=== PATIENT | male | born 1975 | race Caucasian/White ===

== ENCOUNTER 2017-02-19 15:52 | Emergency (ER) | payer SELFPAY ==
--- NOTE | 2017-02-19 18:15 | DIAGNOSTIC IMAGING REPORT ---
PROCEDURE: US ABDOMEN ULTRASOUND-LIMITED INDICATION: RUQ PAIN TECHNIQUE: Ledesma scale and color Doppler sonographic images of the abdomen were obtained. COMPARISON: None. FINDINGS: Gallbladder is normal. No evidence of gallstones. Common duct is normal (4 mm). Portions of the liver are seen, there is fatty infiltration with fat sparing in the posterior left lobe. Portions of the aorta and right kidney are seen, and are normal. Inferior vena cava is patent. Pancreas is partially obscured by bowel gas. IMPRESSION: 1. Increased echogenicity liver compatible fatty infiltration. 2. Normal gallbladder. 3. Otherwise negative ultrasound of the right upper quadrant.
--- NOTE | 2017-02-19 18:33 | ED NURSING NOTES ---
Clinical Report - Nurses Formerly [facility] [address] [place] [address] 02/19/2017 15:54 Patient: WINIFRED BONE TRIAGE Triage time 16:07. Acuity: LEVEL 3. Chief Complaint: ABDOMINAL PAIN and DIARRHEA. Alert. --16:18 Amelia Waldrop R.N. 16:07 02/19/17. BP: 160/94. HR: 85. RR: 20. O2 saturation: 98%. Temp: 98.1 F. Pain level now 03/16. --16:18 Amelia Waldrop R.N. Weight: 122.4 kg stated. Height/Length: 72 inches Per Patient. BMI: 36.6. --16:21 Amelia Waldrop R.N. Medications Levothyroxine Sodium Oral (Tablet 150 mcg). --16:12 Amelia Waldrop R.N. Escitalopram Oxalate Oral (Tablet 20 mg). --16:12 Amelia Waldrop R.N. Allergies No Known Drug Allergy. --16:11 Amelia Waldrop R.N. History Arrived by private vehicle. Historian: patient. Accompanied by family. No primary care physician. ( RUQ abd pain, constant for about 2 weeks. Always has diarrhea. Nothing noted to increase or decrease the pain.). PAST MEDICAL HX: Immunizations: status is unknown. SURGERY HX: Appendectomy. ( cleft palette, pylonidal cyst). SOCIAL HX: Former smoker. Alcohol use. No drug use. No recent travel. No infectious disease exposure. No known contact with a sick individual. SELF HARM ASSESSMENT: A self harm assessment was performed. The patient answered "no" to the question "Have you recently felt down, depressed, or hopeless?" and "Do you have thoughts of harming or killing yourself?". FALL RISK ASSESSMENT: Fall risk assessment completed. No fall risk identified. NUTRITIONAL RISK ASSESSMENT: The nutritional risk assessment revealed no deficiencies. FUNCTIONAL ASSESSMENT: Functional assessment: no impairments noted. LEARNING NEEDS ASSESSMENT: The learning needs assessment revealed no barriers. SKIN INTEGRITY ASSESSMENT: Skin integrity risk assessment completed. No skin integrity risk identified. --16:18 Amelia Waldrop R.N. PROBLEMS: Anxiety Reaction. Hypothyroidism. --16:14 Amelia Waldrop R.N. Interventions ID band on patient. To treatment room. --16:18 Amelia Waldrop R.N. PHYSICAL ASSESSMENT Ambulatory to room. HEENT: Mucous membranes are pink. GI / : The patient has diarrhea (normal daily). Abdomen soft. Abdominal tenderness. Bowel sounds within normal limits. Stool color normal. SKIN: Skin is warm and dry. --16:21 Amelia Waldrop R.N. NURSING PROGRESS NOTES Monitoring of patient in place. Patient gowned. Head of bed elevated. Two patient identifiers checked. Call light placed in reach. Side rails up x 1. Bed placed in lowest position. Brakes of bed on. Patient ready for evaluation- chart flagged. ED physician notified. --16:22 Amelia Waldrop R.N. 16:38 02/19/2017 Site #1 started via IV in the left hand with an 20g angiocath, with aseptic technique and good blood return; one attempt. Blood drawn: rainbow set. Labeled in the presence of the patient and sent to the lab. Saline lock flushed with 5 mL saline. --16:38 Amelia Waldrop R.N. 18:47 02/19/2017 IV Saline Lock Drip IV Discontinued: STOPPED upon discharge. --19:12 Amelia Waldrop R.N. DISPOSITION / DISCHARGE 18:55 02/19/2017 Site #1 removed upon discharge. Catheter intact. Pressure dressing applied. --19:05 Amelia Waldrop R.N. 1845. No learning barriers present. Discharge instructions provided and reviewed with the patient. Reviewed medication(s) dosing and course information. Prescription(s) given to the patient. Medication(s) for home use given to the patient per protocol. Patient verbalized understanding. Written instructions provided in Canadian. The patient was discharged home and accompanied by spouse. He left the Emergency Department ambulatory and via private vehicle. Spouse driving. FALL RISK ASSESSMENT: Fall risk assessment completed. No fall risk identified. --19:10 Amelia Waldrop R.N. 18:40 02/19/17. BP: 134/85. HR: 79. RR: 18. O2 saturation: 96%. Temp: 98.2 F. Pain level now 04/16. --19:10 Amelia Waldrop R.N. Departure time: 1899. --19:10 Amelia Waldrop R.N. Locked/Released at 02/19/2017 19:15 by Amelia Waldrop R.N.
--- NOTE | 2017-02-19 18:33 | ED ORDER SUMMARY ---
..... Patient: WINIFRED BONE OrderSheet [facility] VisitID: [id number] [place] [address] 41y, M Registration Date/Time: 02/19/2017 ORDER SHEET Weight: 122.4 kg (stated) Allergies: No Known Drug Allergy GENERAL ORDERS: CBC w Diff Urgent (16:38 02/19/2017 LAbe R.N. per protocol) (16:38 LAbe R.N.) CMP Urgent (16:38 02/19/2017 LAbe R.N. per protocol) (16:38 LAbe R.N.) UA-Culture if indicated Urgent (16:38 02/19/2017 LAbe R.N. per protocol) (16:38 LAbe R.N.) Amylase Urgent (16:38 02/19/2017 LAbe R.N. per protocol) (16:38 LAbe R.N.) Lipase Urgent (16:38 02/19/2017 LAbe R.N. per protocol) (16:38 LAbe R.N.) US Abdomen Limited (Yes) (GB) Urgent (17:36 02/19/2017 Shannan Mcgee) (Ack 17:37 Salome) (17:48 LAbe R.N.) MEDICATION ORDERS: IV FLUIDS: IV Saline Lock (16:38 02/19/2017 LAbe R.N. per protocol) (Ack 16:38 LAbe R.N.) ORDER SHEET NOTES: [Electronically signed by Augie Bone Dr. (18:52 02/19/2017)] [Electronically signed by Amelia Waldrop R.N. (19:15 02/19/2017)] [Electronically locked/signed by Amelia Waldrop R.N. (19:15 02/19/2017)]
--- NOTE | 2017-02-19 18:33 | ED CLINICAL REPORT ---
Clinical Report - Physicians/Mid Levels [facility] [address] [place] [address] 02/19/2017 15:54 Patient: WINIFRED LAWRENCE Time Seen: 16:13; initial patient contact. HISTORY OF PRESENT ILLNESS Chief Complaint: ABDOMINAL PAIN. It is described as "pain" and sharp. No radiation. It is described as located in the right upper quadrant. At its maximum, severity described as moderate. When seen in the E.D., severity described as moderate. Modifying factors. Not worsened by anything. Not relieved by anything. This started several weeks ago and is still present. No nausea, loss of appetite, vomiting or diarrhea. Similar symptoms previously: None. Recent medical care: Not recently seen/assessed. REVIEW OF SYSTEMS No constipation or difficulty with urination. All systems otherwise negative, except as recorded above. PAST HISTORY Anxiety Reaction. Hypothyroidism. SOCIAL HISTORY Former smoker. Occasional alcohol use. No drug use. ADDITIONAL NOTES The nursing notes have been reviewed. PHYSICAL EXAM Vital Signs: 02/19/2017 16:07 BP: 160/94. HR: 85. RR: 20. O2 saturation: 98%. Temp: 98.1 F. Have been reviewed. Hypertensive. Heart rate normal. Respiratory rate normal. Temperature normal. Oxygen saturation normal. Appearance: Alert. Oriented X3. No acute distress. (On his phone texting). ENT: Pharynx normal. CVS: Normal heart rate and rhythm. Heart sounds normal. Respiratory: No respiratory distress. Breath sounds normal. Abdomen: Soft. Moderate tenderness in the right upper quadrant with guarding present. No rebound tenderness or Ortega's sign present. Bowel sounds normal. No organomegaly. No mass. Back: Normal inspection. No CVA tenderness. Skin: Skin warm and dry. Normal skin color. Neuro: Oriented X 3. LABS, X-RAYS, AND EKG Abdominal Sonogram: (1. Increased echogenicity liver compatible fatty infiltration. 2. Normal gallbladder.). Study included the gallbladder. Prior studies were not available for comparison. The study was interpreted by the radiologist and discussed with the radiologist. Laboratory Tests: UA-Culture if indicated: (MAGGIE: 02/19/2017 16:30) ( [facility] 02/19/2017 17:18) Final results Test Result Flag Units (Reference) URINE COLOR YELLOW URINE APPEARANCE CLEAR URINE GLUCOSE NEGATIVE (NEGATIVE) URINE BILIRUBIN NEGATIVE (NEGATIVE) URINE KETONE NEGATIVE (NEGATIVE) URINE SPECIFIC GRAVITY 1.020 (1.010-1.030) URINE PH 6.0 (5.0-8.0) URINE PROTEIN NEGATIVE (NEGATIVE) URINE UROBILINOGEN 0.2 EU/dL (0.2-1.0) URINE NITRITE NEGATIVE (NEGATIVE) URINE BLOOD NEGATIVE (NEGATIVE) URINE LEUK ESTERASE NEGATIVE (NEGATIVE) URINE RBC NONE SEEN rbc/hpf (0-1) URINE WBC 0-1 wbc/hpf (0-1) URINE EPITHELIAL CELLS 0-1 EPI/hpf (0-5) URINE BACTERIA NONE SEEN (NONE SEEN) URINE COMMENT CULT NOT INDICATED URINE CULTURES ARE SET-UP BASED ON THE FOLLOWING CRITERIA:POSITIVE NITRITEPOSITIVE LEUKOCYTE ESTERASEGREATER THAN 10 WHITE BLOOD CELLSMODERATE (2+) OR GREATER BACTERIA CBC w Diff: (MAGGIE: 02/19/2017 16:30) ( [facility] 02/19/2017 16:50) Final results Test Result Flag Units (Reference) WHITE BLOOD COUNT 6.6 K/uL (4.5-11.5) RED BLOOD COUNT 4.75 M/uL (4.50-5.90) HEMOGLOBIN 14.5 gm/dL (13.5-17.5) HEMATOCRIT 42.7 % (41.0-53.0) MEAN CELL VOLUME 90 fL (80-100) MEAN CORPUSCULAR HGB 31 pg (26-34) MEAN CORPUSCULAR HGB CONC 34 g/dL (31-37) RED CELL DISTRIBUTION WIDTH 12.7 % (11.6-14.8) PLATELET COUNT 246 K/uL (150-400) NEUTROPHIL % 56.3 % (50-75) LYMPH % 33.6 % (25-40) MONO % 7.9 % (3-14) EOSINOPHIL % 1.9 % (0-4) BASOPHIL % 0.3 % (0-2) CMP: (MAGGIE: 02/19/2017 16:30) ( [facility] 02/19/2017 17:08) Final results Test Result Flag Units (Reference) GLUCOSE 131 H mg/dL (70-110) BUN 16 mg/dL (7-18) CREATININE 1.0 mg/dL (0.6-1.3) Estimated GFR >60 mL/min Estimated GFR- >60 mL/min Note: Persistent reduction over 3 months in eGFR<60 mL/min/1.73 m2 defines CKD. Patients with eGFR values>=60 mL/min/1.73 m2 may also have CKD if evidence ofpersistent proteinuria. Additional information may be foundat www.kidney.org. SODIUM 138 mmol/L (136-145) POTASSIUM 3.6 mmol/L (3.5-5.1) CHLORIDE 102 mmol/L (98-107) CARBON DIOXIDE 26 mmol/L (21-32) CALCIUM 8.3 L mg/dL (8.5-10.1) TOTAL PROTEIN 7.5 g/dL (6.4-8.2) ALBUMIN 3.6 g/dL (3.3-5.0) BILIRUBIN, TOTAL 0.2 mg/dL (0.0-1.0) ALKALINE PHOSPHATASE 88 U/L (46-116) AST (SGOT) 23 U/L (15-37) ALT (SGPT) 52 U/L (12-78) LIPASE 199 U/L (73-393) AMYLASE 33 U/L (25-115) . PROGRESS AND PROCEDURES Disposition: Discharged home in good and improved condition. Condition: good. CLINICAL IMPRESSION Chronic right upper quadrant abdominal pain of unknown cause. INSTRUCTIONS Your Current Medications: CONTINUE TAKING THE FOLLOWING MEDICATIONS: Escitalopram Oxalate Oral : Tablet 20 mg. Levothyroxine Sodium Oral : Tablet 150 mcg. Prescription Medications: Hydrocodone/APAP 5mg / 325mg: take 1 orally every 6 hours as needed for pain. Dispense fifteen (15). No refill. BuSpar 7.5 mg: take 1 tablet every 12 hours. Dispense thirty (30). No refills. Substitution is permissible. Lidoderm patch 5% Apply 1 patch for 12 hours to affected area Disp # 30 No refills. Follow-up: Screening today revealed the patient's blood pressure to be in the hypertensive range. The patient should follow up with a primary care provider for blood pressure management. Follow-up with: [facility], Family [facility], , [address] [place] [address], [id number], [place] [address] Follow up in about four days. Call for an appointment. (Electronically signed by Augie Lawrence Dr. 02/19/2017 18:52)
--- NOTE | 2017-02-19 18:33 | ED ORDER SUMMARY ---
..... Patient: WINIFRED BONE OrderSheet [facility] VisitID: [id number] [place] [address] 41y, M Registration Date/Time: 02/19/2017 ORDER SHEET Weight: 122.4 kg (stated) Allergies: No Known Drug Allergy GENERAL ORDERS: CBC w Diff Urgent (16:38 02/19/2017 LAbe R.N. per protocol) (16:38 LAbe R.N.) CMP Urgent (16:38 02/19/2017 LAbe R.N. per protocol) (16:38 LAbe R.N.) UA-Culture if indicated Urgent (16:38 02/19/2017 LAbe R.N. per protocol) (16:38 LAbe R.N.) Amylase Urgent (16:38 02/19/2017 LAbe R.N. per protocol) (16:38 LAbe R.N.) Lipase Urgent (16:38 02/19/2017 LAbe R.N. per protocol) (16:38 LAbe R.N.) US Abdomen Limited (Yes) (GB) Urgent (17:36 02/19/2017 Shannan Mcgee) (Ack 17:37 Salome) (17:48 LAbe R.N.) MEDICATION ORDERS: IV FLUIDS: IV Saline Lock (16:38 02/19/2017 LAbe R.N. per protocol) (Ack 16:38 LAbe R.N.) ORDER SHEET NOTES: [Electronically signed by Augie Bone Dr. (18:52 02/19/2017)] [Electronically signed by Amelia Waldrop R.N. (19:15 02/19/2017)] [Electronically locked/signed by Amelia Waldrop R.N. (19:15 02/19/2017)]
--- NOTE | 2017-02-19 19:15 | ED MED RECONCILIATION SUMMARY ---
Patient: WINIFRED LAWRECNE Medication Reconciliation Report VisitID: [id number] [place] [address] 41y, M Registration Date/Time: 02/19/2017 Weight: 122.4 kg Height/Length: 72 in. BMI: 36.6 ALLERGIES: No Known Drug Allergy The patient's Home Medications are listed below: CONTINUE TAKING THE FOLLOWING MEDICATIONS: Escitalopram Oxalate Oral (20 mg) Levothyroxine Sodium Oral (150 mcg) The source(s) of the original Home Medication information: Not obtained. The following Medications were given to the patient in the Emergency Department: None. The following Medications were prescribed to the patient: Hydrocodone/APAP 5mg / 325mg: take 1 orally every 6 hours as needed for pain. Dispense fifteen (15). No refill. -- Augie Lawrence Dr. Lidoderm patch 5%Apply 1 patch for 12 hours to affected areaDisp # 30No refills. -- Augie Lawrence Dr. BuSpar 7.5 mg: take 1 tablet every 12 hours. Dispense thirty (30). No refills. Substitution is permissible. -- Augie Lawrence Dr.
--- NOTE | 2017-02-19 19:15 | ED MAR SUMMARY ---
..... Medication Administration Record [facility] [address] [place] [address] Patient: WINIFRED BONE Visit ID: [id number] 41y, M Weight: 122.4 kg Height/Length: 72 in BMI: 36.6 ALLERGIES: No Known Drug Allergy
--- NOTE | 2017-02-19 19:15 | ED DISCHARGE INSTRUCTIONS ---
Patient: WINIFRED LAWRENCE General Instructions [facility] VisitID: [id number] [place] [address] 41y, M Registration Date/Time: 02/19/2017 Chronic right upper quadrant abdominal pain of unknown cause. INSTRUCTIONS Your Current Medications: CONTINUE TAKING THE FOLLOWING MEDICATIONS: Escitalopram Oxalate Oral : Tablet 20 mg. Levothyroxine Sodium Oral : Tablet 150 mcg. Prescription Medications: Hydrocodone/APAP 5mg / 325mg: take 1 orally every 6 hours as needed for pain. Dispense fifteen (15). No refill. BuSpar 7.5 mg: take 1 tablet every 12 hours. Dispense thirty (30). No refills. Substitution is permissible. Lidoderm patch 5% Apply 1 patch for 12 hours to affected area Disp # 30 No refills. Follow-up: Screening today revealed the patient's blood pressure to be in the hypertensive range. The patient should follow up with a primary care provider for blood pressure management. Follow-up with: [facility], , [address] [place] [address], [address] [address] Follow up in about four days. Call for an appointment. ADDITIONAL INFORMATION Abdominal Pain,Uncertain Cause [Male] Based on your visit today, the exact cause of your abdominalpain is not clear. Your exam and tests do not indicate a dangerous cause at this time. However, the signs of a serious problem may take more time to appear. Although your evaluation was reassuring today, sometimes early in the course of many conditions, exam and lab tests can appear normal. Therefore, it is important for you to watch for any new symptoms or worsening of your condition. Causes It may not be obvious what caused your symptoms. Pay attention to things that do seem to make your symptoms worse or better and discuss this with your doctor when you follow up. Diagnosis The evaluation of abdominal pain in the emergency department may onlyrequire an exam by the doctor or it may include blood, urine or imaging studies, depending on many factors. Sometimes exams and tests can identify a cause but in many cases, a clear cause is not found. Further testing at follow up visits may help to suggest a clear diagnosis. Home Care Rest as much as possible until your next exam. Try to avoid any medications (unless otherwise directed by your doctor), foods, activities, or other factors that you may have contributed to your symptoms. Try to eat foods that you know that you have tolerated well in the past. Certain diets may be recommended for some conditions that cause abdominal pain. However, since the cause of your symptoms may not be clear, discuss your diet more with your primary care provider or specialist for further recommendations. Eating several small meals per day as opposed to 2 or 3 larger meals may help. Monitor closely for anything that may make your symptoms worse or better. Pay close attention to symptoms below that may indicate worsening of your condition. Follow Up and Precautions See your doctoras instructed or sooneror if your symptoms are not improving.In some cases, you may need more testing. When to Seek Medical Attention Contact your doctor or see medical attention ifany of the following occur: Pain is becoming worse You are unable to take your medications due to excessive vomiting Swelling of the abdomen Fever of 100.4F (38C) or higher, or as directed by your health care provider Blood in vomit or bowel movements (dark red or black color) Jaundice (yellow color of eyes and skin) New onset of weakness, dizziness or fainting New onset of chest, arm, back, neck or jaw pain Hydrocodone Bitartrate, Acetaminophen Oral tablet What is this medicine? ACETAMINOPHEN; HYDROCODONE (a set a ARNAUD maximus fen; brenton droe KOE done) is a pain reliever. It is used to treat mild to moderate pain. How should I use this medicine? Take this medicine by mouth. Swallow it with a full glass of water. Follow the directions on the prescription label. If the medicine upsets your stomach, take the medicine with food or milk. Do not take more than you are told to take. Talk to your scalloper regarding the use of this medicine in children. This medicine is not approved for use in children. What side effects may I notice from receiving this medicine? Side effects that you should report to your doctor or health rn transitional care as soon as possible: allergic reactions like skin rash, itching or hives, swelling of the face, lips, or tongue breathing problems confusion feeling faint or lightheaded, falls stomach pain yellowing of the eyes or skin Side effects that usually do not require medical attention (report to your doctor or health rn transitional care if they continue or are bothersome): nausea, vomiting stomach upset What may interact with this medicine? alcohol antihistamines isoniazid medicines for depression, anxiety, or psychotic disturbances medicines for sleep muscle relaxants naltrexone narcotic medicines (opiates) for pain phenobarbital ritonavir tramadol What if I miss a dose? If you miss a dose, take it as soon as you can. If it is almost time for your next dose, take only that dose. Do not take double or extra doses. Where should I keep my medicine? Keep out of the reach of children. This medicine can be abused. Keep your medicine in a safe place to protect it from theft. Do not share this medicine with anyone. Selling or giving away this medicine is dangerous and against the law. Store at room temperature between 15 and 30 degrees C (59 and 86 degrees F). Protect from light. Keep container tightly closed. Throw away any unused medicine after the expiration date. Discard unused medicine and used packaging carefully. Pets and children can be harmed if they find used or lost packages. What should I tell my health care provider before I take this medicine? They need to know if you have any of these conditions: brain tumor Crohn's disease, inflammatory bowel disease, or ulcerative colitis drink more than 3 alcohol-containing drinks per day drug abuse or addiction head injury heart or circulation problems kidney disease or problems going to the bathroom liver disease lung disease, asthma, or breathing problems an unusual or allergic reaction to acetaminophen, hydrocodone, other opioid analgesics, other medicines, foods, dyes, or preservatives or trying to get breast-feeding What should I watch for while using this medicine? Tell your doctor or health rn transitional care if your pain does not go away, if it gets worse, or if you have new or a different type of pain. You may develop tolerance to the medicine. Tolerance means that you will need a higher dose of the medicine for pain relief. Tolerance is normal and is expected if you take the medicine for a long time. Do not suddenly stop taking your medicine because you may develop a severe reaction. Your body becomes used to the medicine. This does NOT mean you are addicted. Addiction is a behavior related to getting and using a drug for a non-medical reason. If you have pain, you have a medical reason to take pain medicine. Your doctor will tell you how much medicine to take. If your doctor wants you to stop the medicine, the dose will be slowly lowered over time to avoid any side effects. You may get drowsy or dizzy when you first start taking the medicine or change doses. Do not drive, use machinery, or do anything that may be dangerous until you know how the medicine affects you. Stand or sit up slowly. There are different types of narcotic medicines (opiates) for pain. If you take more than one type at the same time, you may have more side effects. Give your health care provider a list of all medicines you use. Your doctor will tell you how much medicine to take. Do not take more medicine than directed. Call emergency for help if you have problems breathing. The medicine will cause constipation. Try to have a bowel movement at least every 2 to 3 days. If you do not have a bowel movement for 3 days, call your doctor or health rn transitional care. Too much acetaminophen can be very dangerous. Do not take Tylenol (acetaminophen) or medicines that contain acetaminophen with this medicine. Many non-prescription medicines contain acetaminophen. Always read the labels carefully. You have been given the following additional information: Abdominal Pain, Unknown Cause, (Male) Hydrocodone Bitartrate, Acetaminophen Oral tablet (Electronically signed by Augie Lawrence Dr. 02/19/2017 18:52)
--- NOTE | 2017-02-19 19:15 | ED MAR SUMMARY ---
..... Medication Administration Record Located Within [facility] [address] [place] [address] Patient: WINIFRED BONE Visit ID: [id number] 41y, M Weight: 122.4 kg Height/Length: 72 in BMI: 36.6 ALLERGIES: No Known Drug Allergy
--- NOTE | 2017-02-19 19:15 | ED MED RECONCILIATION SUMMARY ---
Patient: WINIFRED LAWRENCE Medication Reconciliation Report [facility] VisitID: [id number] [place] [address] 41y, M Registration Date/Time: 02/19/2017 Weight: 122.4 kg Height/Length: 72 in. BMI: 36.6 ALLERGIES: No Known Drug Allergy The patient's Home Medications are listed below: CONTINUE TAKING THE FOLLOWING MEDICATIONS: Escitalopram Oxalate Oral (20 mg) Levothyroxine Sodium Oral (150 mcg) The source(s) of the original Home Medication information: Not obtained. The following Medications were given to the patient in the Emergency Department: None. The following Medications were prescribed to the patient: Hydrocodone/APAP 5mg / 325mg: take 1 orally every 6 hours as needed for pain. Dispense fifteen (15). No refill. -- Augie Lawrence Dr. Lidoderm patch 5%Apply 1 patch for 12 hours to affected areaDisp # 30No refills. -- Augie Lawrence Dr. BuSpar 7.5 mg: take 1 tablet every 12 hours. Dispense thirty (30). No refills. Substitution is permissible. -- Augie Lawrence Dr.
--- NOTE | 2017-02-19 19:15 | ED DISCHARGE INSTRUCTIONS ---
Patient: WINIFRED LAWRENCE General Instructions [facility] VisitID: [id number] [place] [address] 41y, M Registration Date/Time: 02/19/2017 Chronic right upper quadrant abdominal pain of unknown cause. INSTRUCTIONS Your Current Medications: CONTINUE TAKING THE FOLLOWING MEDICATIONS: Escitalopram Oxalate Oral : Tablet 20 mg. Levothyroxine Sodium Oral : Tablet 150 mcg. Prescription Medications: Hydrocodone/APAP 5mg / 325mg: take 1 orally every 6 hours as needed for pain. Dispense fifteen (15). No refill. BuSpar 7.5 mg: take 1 tablet every 12 hours. Dispense thirty (30). No refills. Substitution is permissible. Lidoderm patch 5% Apply 1 patch for 12 hours to affected area Disp # 30 No refills. Follow-up: Screening today revealed the patient's blood pressure to be in the hypertensive range. The patient should follow up with a primary care provider for blood pressure management. Follow-up with: [facility], [facility], , [address] [place] [address], [id number] [id number] Follow up in about four days. Call for an appointment. ADDITIONAL INFORMATION Abdominal Pain,Uncertain Cause [Male] Based on your visit today, the exact cause of your abdominalpain is not clear. Your exam and tests do not indicate a dangerous cause at this time. However, the signs of a serious problem may take more time to appear. Although your evaluation was reassuring today, sometimes early in the course of many conditions, exam and lab tests can appear normal. Therefore, it is important for you to watch for any new symptoms or worsening of your condition. Causes It may not be obvious what caused your symptoms. Pay attention to things that do seem to make your symptoms worse or better and discuss this with your doctor when you follow up. Diagnosis The evaluation of abdominal pain in the emergency department may onlyrequire an exam by the doctor or it may include blood, urine or imaging studies, depending on many factors. Sometimes exams and tests can identify a cause but in many cases, a clear cause is not found. Further testing at follow up visits may help to suggest a clear diagnosis. Home Care Rest as much as possible until your next exam. Try to avoid any medications (unless otherwise directed by your doctor), foods, activities, or other factors that you may have contributed to your symptoms. Try to eat foods that you know that you have tolerated well in the past. Certain diets may be recommended for some conditions that cause abdominal pain. However, since the cause of your symptoms may not be clear, discuss your diet more with your primary care provider or specialist for further recommendations. Eating several small meals per day as opposed to 2 or 3 larger meals may help. Monitor closely for anything that may make your symptoms worse or better. Pay close attention to symptoms below that may indicate worsening of your condition. Follow Up and Precautions See your doctoras instructed or sooneror if your symptoms are not improving.In some cases, you may need more testing. When to Seek Medical Attention Contact your doctor or see medical attention ifany of the following occur: Pain is becoming worse You are unable to take your medications due to excessive vomiting Swelling of the abdomen Fever of 100.4F (38C) or higher, or as directed by your health care provider Blood in vomit or bowel movements (dark red or black color) Jaundice (yellow color of eyes and skin) New onset of weakness, dizziness or fainting New onset of chest, arm, back, neck or jaw pain Hydrocodone Bitartrate, Acetaminophen Oral tablet What is this medicine? ACETAMINOPHEN; HYDROCODONE (a set a ARNAUD maximus fen; brenton droe KOE done) is a pain reliever. It is used to treat mild to moderate pain. How should I use this medicine? Take this medicine by mouth. Swallow it with a full glass of water. Follow the directions on the prescription label. If the medicine upsets your stomach, take the medicine with food or milk. Do not take more than you are told to take. Talk to your bracer regarding the use of this medicine in children. This medicine is not approved for use in children. What side effects may I notice from receiving this medicine? Side effects that you should report to your doctor or health home care manager as soon as possible: allergic reactions like skin rash, itching or hives, swelling of the face, lips, or tongue breathing problems confusion feeling faint or lightheaded, falls stomach pain yellowing of the eyes or skin Side effects that usually do not require medical attention (report to your doctor or health home care manager if they continue or are bothersome): nausea, vomiting stomach upset What may interact with this medicine? alcohol antihistamines isoniazid medicines for depression, anxiety, or psychotic disturbances medicines for sleep muscle relaxants naltrexone narcotic medicines (opiates) for pain phenobarbital ritonavir tramadol What if I miss a dose? If you miss a dose, take it as soon as you can. If it is almost time for your next dose, take only that dose. Do not take double or extra doses. Where should I keep my medicine? Keep out of the reach of children. This medicine can be abused. Keep your medicine in a safe place to protect it from theft. Do not share this medicine with anyone. Selling or giving away this medicine is dangerous and against the law. Store at room temperature between 15 and 30 degrees C (59 and 86 degrees F). Protect from light. Keep container tightly closed. Throw away any unused medicine after the expiration date. Discard unused medicine and used packaging carefully. Pets and children can be harmed if they find used or lost packages. What should I tell my health care provider before I take this medicine? They need to know if you have any of these conditions: brain tumor Crohn's disease, inflammatory bowel disease, or ulcerative colitis drink more than 3 alcohol-containing drinks per day drug abuse or addiction head injury heart or circulation problems kidney disease or problems going to the bathroom liver disease lung disease, asthma, or breathing problems an unusual or allergic reaction to acetaminophen, hydrocodone, other opioid analgesics, other medicines, foods, dyes, or preservatives or trying to get breast-feeding What should I watch for while using this medicine? Tell your doctor or health home care manager if your pain does not go away, if it gets worse, or if you have new or a different type of pain. You may develop tolerance to the medicine. Tolerance means that you will need a higher dose of the medicine for pain relief. Tolerance is normal and is expected if you take the medicine for a long time. Do not suddenly stop taking your medicine because you may develop a severe reaction. Your body becomes used to the medicine. This does NOT mean you are addicted. Addiction is a behavior related to getting and using a drug for a non-medical reason. If you have pain, you have a medical reason to take pain medicine. Your doctor will tell you how much medicine to take. If your doctor wants you to stop the medicine, the dose will be slowly lowered over time to avoid any side effects. You may get drowsy or dizzy when you first start taking the medicine or change doses. Do not drive, use machinery, or do anything that may be dangerous until you know how the medicine affects you. Stand or sit up slowly. There are different types of narcotic medicines (opiates) for pain. If you take more than one type at the same time, you may have more side effects. Give your health care provider a list of all medicines you use. Your doctor will tell you how much medicine to take. Do not take more medicine than directed. Call emergency for help if you have problems breathing. The medicine will cause constipation. Try to have a bowel movement at least every 2 to 3 days. If you do not have a bowel movement for 3 days, call your doctor or health home care manager. Too much acetaminophen can be very dangerous. Do not take Tylenol (acetaminophen) or medicines that contain acetaminophen with this medicine. Many non-prescription medicines contain acetaminophen. Always read the labels carefully. You have been given the following additional information: Abdominal Pain, Unknown Cause, (Male) Hydrocodone Bitartrate, Acetaminophen Oral tablet (Electronically signed by Augie Lawrence Dr. 02/19/2017 18:52)
== END 2017-02-19 18:59 | disposition home or self-care (01) ==
LOC: ED SRH 15:52
DX: R10.11 Right upper quadrant pain (principal); G89.29 Other chronic pain; E03.9 Hypothyroidism, unspecified; Z87.891 Personal history of nicotine dependence
CPT/HCPCS: 90004; 90100; 92235; 92530; 95059

== ENCOUNTER 2017-02-25 10:54 | Emergency (ER) | payer OTHER ==
--- NOTE | 2017-02-25 14:35 | ED ORDER SUMMARY ---
..... Patient: WINIFRED BONE OrderSheet [facility] VisitID: [id number] [place] [address] 41y, M Registration Date/Time: 02/25/2017 ORDER SHEET Weight: 132.9 kg (stated) Allergies: No Known Drug Allergy GENERAL ORDERS: CBC w Diff Urgent (11:36 02/25/2017 Indra HADLEY) (Ack 11:39 LNations ER Tech1) CMP Urgent (11:36 02/25/2017 Indra HADLEY) (Ack 11:39 LNations ER Tech1) Amylase Urgent (11:02/25/2017 Indra HADLEY) (Ack 11:39 LNations ER Tech1) Lipase Urgent (11:02/25/2017 Indra HADLEY) (Ack 11:39 LNations ER Tech1) PT with INR Urgent (11:02/25/2017 Indra HADLEY) (Ack 11:40 LNations ER Tech1) PTT Urgent (11:02/25/2017 Indra HADLEY) (Ack 11:40 LNations ER Tech1) NPO (11:36 02/25/2017 Indra HADLEY) (Ack 11:39 LNations ER Tech1) UA-Culture if indicated Urgent (12:10 02/25/2017 Indra HADLEY) (Ack 12:12 LNations ER Tech1) MEDICATION ORDERS: IV FLUIDS: IV NS : initial bolus 1000 mL (1000 mL/hr), then 200 mL/hr for 4h (NOW); Urgent (11:36 02/25/2017 Indra HADLEY) (12:07 Krzysztof R.N.) ORDER SHEET NOTES: [Electronically signed by Sheriff Rajinder Vieira (14:58 02/25/2017)] [Electronically signed by Eugenio Combs MD (21:48 02/26/2017)] [Electronically locked/signed by Sheriff Rajinder Vieira (14:58 02/25/2017)]
--- NOTE | 2017-02-25 14:35 | ED CLINICAL REPORT ---
Clinical Report - Physicians/Mid Levels [facility] [address] [place] [address] 02/25/2017 10:54 Patient: WINIFRED BONE Time Seen: 11:14. Arrived- By private vehicle. Historian- patient. HISTORY OF PRESENT ILLNESS Chief Complaint: ABDOMINAL PAIN. This started about 3 weeks ago and is still present. It was gradual in onset and has been constant. It is described as "pain" and burning and it is described as located in the right upper quadrant and in the upper abdomen. At its maximum, severity described as 8 / 10. When seen in the E.D., severity described as 8 / 10. Modifying factors- (worsened yesterday by drinking milk). No nausea, loss of appetite, vomiting or diarrhea. Recent medical care: The patient was seen recently at another facility in a clinic. Seen for similar symptoms. ( the patient was seen for similar symptoms at the clinic. They did lab work. They called him and instructed him to come to the emergency room because of elevated pancreatic enzymes.). REVIEW OF SYSTEMS No chills, fever, calf pain, chest pain or cough. No difficulty breathing, pedal edema, palpitations, black stools or bloody stools. No constipation, diarrhea or urinary problems. He has experienced night sweats. (chronically). All systems otherwise negative, except as recorded above. PAST HISTORY Problems: Abdominal Pain. Anxiety Reaction. Hypothyroidism. Additional Surgeries: Appendectomy. Medications: Escitalopram Oxalate Oral (Tablet 20 mg). Levothyroxine Sodium Oral (Tablet 150 mcg). Allergies: No Known Drug Allergy. SOCIAL HISTORY Smoker- current status unknown (chews tobacco). Alcohol use. (binges with beer. He drank a 6 pack last night. However, he doesn't drink most days). ADDITIONAL NOTES The nursing notes have been reviewed. PHYSICAL EXAM Vital Signs: 02/25/2017 11:05 BP: 139/92. HR: 88. RR: 18. O2 saturation: 99%. Temp: 98.1 F. Pain level now: 8/10. Have been reviewed. Appearance: Alert. Eyes: Pupils equal, round and reactive to light. ENT: Pharynx normal. Neck: Normal inspection. Neck supple. CVS: Normal heart rate and rhythm. Heart sounds normal. Respiratory: No respiratory distress. Breath sounds normal. Abdomen: Soft and nontender. Bowel sounds normal. No organomegaly. No mass. Obese. Back: Normal inspection. No CVA tenderness. Skin: Skin warm and dry. Normal skin color. Normal skin turgor. Extremities: Extremities exhibit normal ROM. No calf tenderness. No lower extremity edema. Neuro: No motor deficit. No sensory deficit. LABS, X-RAYS, AND EKG Laboratory Tests: CBC w Diff: (MAGGIE: 02/25/2017 12:00) ( MsgRcvd 02/25/2017 12:19) Final results Test Result Flag Units (Reference) WHITE BLOOD COUNT 5.2 K/uL (4.5-11.5) RED BLOOD COUNT 4.78 M/uL (4.50-5.90) HEMOGLOBIN 14.6 gm/dL (13.5-17.5) HEMATOCRIT 42.9 % (41.0-53.0) MEAN CELL VOLUME 90 fL (80-100) MEAN CORPUSCULAR HGB 31 pg (26-34) MEAN CORPUSCULAR HGB CONC 34 g/dL (31-37) RED CELL DISTRIBUTION WIDTH 12.5 % (11.6-14.8) PLATELET COUNT 209 K/uL (150-400) NEUTROPHIL % 51.0 % (50-75) LYMPH % 38.9 % (25-40) MONO % 8.0 % (3-14) EOSINOPHIL % 1.6 % (0-4) BASOPHIL % 0.5 % (0-2) PT with INR: (MAGGIE: 02/25/2017 12:00) ( MsgRcvd 02/25/2017 12:19) Final results Test Result Flag Units (Reference) INR 0.9 (0.8-1.2) Low Intensity Therapy: INR 1.5-2.0 PT range 18.5-23.1Mod.Intensity Therapy: INR 2.0-3.0 PT range 23.1-31.5High Intensity Therapy: INR 2.5-3.5 PT range 27.4-35.5High Intensity Therapy 2: INR 3.0-4.0 PT range 31.5-39.3 APTT 25 SECONDS (24-34) CMP: (MAGGIE: 02/25/2017 12:00) ( MsgRcvd 02/25/2017 12:24) Final results Test Result Flag Units (Reference) GLUCOSE 94 mg/dL (70-110) BUN 17 mg/dL (7-18) CREATININE 0.9 mg/dL (0.6-1.3) Estimated GFR >60 mL/min Estimated GFR- >60 mL/min Note: Persistent reduction over 3 months in eGFR<60 mL/min/1.73 m2 defines CKD. Patients with eGFR values>=60 mL/min/1.73 m2 may also have CKD if evidence ofpersistent proteinuria. Additional information may be foundat www.kidney.org. SODIUM 137 mmol/L (136-145) POTASSIUM 4.3 mmol/L (3.5-5.1) CHLORIDE 102 mmol/L (98-107) CARBON DIOXIDE 25 mmol/L (21-32) CALCIUM 8.3 L mg/dL (8.5-10.1) TOTAL PROTEIN 7.4 g/dL (6.4-8.2) ALBUMIN 3.6 g/dL (3.3-5.0) BILIRUBIN, TOTAL 0.2 mg/dL (0.0-1.0) ALKALINE PHOSPHATASE 84 U/L (46-116) AST (SGOT) 32 U/L (15-37) ALT (SGPT) 76 U/L (12-78) LIPASE 173 U/L (73-393) AMYLASE 32 U/L (25-115) . PROGRESS AND PROCEDURES Course of Care: Patient is stable. Patient/family counseled. Old medical records reviewed. Disposition: Discharged. Condition: stable. CLINICAL IMPRESSION Abdominal pain of unknown cause. Abnormal tests: (pancreatic enzymes resolved). INSTRUCTIONS Drink plenty of fluids. No alcohol. (Attend the appointment for your endoscopy as scheduled. Follow up with your primary care provider after that study as discussed.). Warnings: Further evaluation is necessary. GENERAL WARNINGS: Return or contact your physician immediately if your condition worsens or changes unexpectedly, if not improving as expected, or if other problems arise. Your Current Medications: CONTINUE TAKING THE FOLLOWING MEDICATIONS: Escitalopram Oxalate Oral : Tablet 20 mg. Levothyroxine Sodium Oral : Tablet 150 mcg. Understanding of the discharge instructions verbalized by patient. Follow-up with: [facility] Sanchez, [facility], , [address], [id number], , [facility] [address] Follow up in ten days. Call for an appointment. (Electronically signed by Eugenio Combs MD 02/26/2017 21:48)
--- NOTE | 2017-02-25 14:35 | ED NURSING NOTES ---
Clinical Report - Nurses [facility] [address] [place] [address] 02/25/2017 10:54 [id number] TRI[facility] Triage time 11:07. Chief Complaint: (Abnormal lab results. Sent by PCP for follow up.). --11:10 Sheriff Vieira R.N. 11:05 02/25/17. BP: 139/92. HR: 88. RR: 18. O2 saturation: 99%. Temp: 98.1 F. Pain level now: 04/16. --11:10 Sheriff Vieira R.N. Weight: 132.9 kg stated. Height/Length: 71 inches Per Patient. BMI: 40.9. --11:06 Sheriff Vieira R.N. Medications Escitalopram Oxalate Oral (Tablet 20 mg). Levothyroxine Sodium Oral (Tablet 150 mcg). --11:08 Sheriff Vieira R.N. Allergies No Known Drug Allergy. --11:08 Sheriff Vieira R.N. History Arrived by private vehicle. Historian: patient. Unaccompanied. Onset. (2 hours ago). SURGERY HX: Appendectomy. SOCIAL HX: Never smoker. Alcohol use; consumes beer occasionally. No drug use. FALL RISK ASSESSMENT: Fall risk assessment completed. No fall risk identified. NUTRITIONAL RISK ASSESSMENT: The nutritional risk assessment revealed no deficiencies. FUNCTIONAL ASSESSMENT: Functional assessment: no impairments noted. LEARNING NEEDS ASSESSMENT: The learning needs assessment revealed no barriers. SKIN INTEGRITY ASSESSMENT: Skin integrity risk assessment completed. No skin integrity risk identified. --11:10 Sheriff Vieira R.N. PROBLEMS: Abdominal Pain. Anxiety Reaction. Hypothyroidism. --11:08 Sheriff Vieira R.N. PHYSICAL ASSESSMENT Ambulatory to room. GENERAL / NEURO / PSYCH: Alert. Oriented X 4. Appears in no acute distress. HEENT: Pupils equal, round and reactive to light. No facial asymmetry noted. RESPIRATORY: Respirations not labored. CVS: Capillary refill less than 2 seconds. GI / : Abdomen soft. SKIN: Skin intact. Skin is warm and dry. Normal skin turgor. --11:10 Sheriff Viiera R.N. NURSING PROGRESS NOTES Two patient identifiers checked. Call light placed in reach. Side rails up x 2. Bed placed in lowest position. Brakes of bed on. --11:10 Sheriff Vieira R.N. 12:01 02/25/2017 Site #1 started via IV in the right wrist with an 22g angiocath, with aseptic technique and good blood return; one attempt. Blood drawn: rainbow set. Labeled in the presence of the patient and sent to the lab. Saline lock flushed with 10 mL saline. --12:06 Sheriff Vieira R.N. 12:07 02/25/2017 Started bag #1 1000 mL IV Fluids IV NS (Saline); at 1000 mL/hr over 1 hour(s) via site #1 via IV pump. Allergies verified and confirmed 5 rights. IV patency established. IV site checked: no pain, redness, or swelling. IV flushed thoroughly pre- and post-medication administration. --12:07 Sheriff Vieira R.N. 14:11 02/25/2017 Started IV Fluids IV NS (Saline); at 200 mL/hr over 5 hour(s) via site #1 via IV pump. Allergies verified and confirmed 5 rights. IV patency established. IV site checked: no pain, redness, or swelling. IV flushed thoroughly pre- and post-medication administration. --14:11 Sheriff Vieira R.N. DISPOSITION / DISCHARGE Condition at departure: stable. No learning barriers present. Discharge instructions provided and reviewed with the patient. Reviewed medication(s) side effects, precautions, dosing and course information. Prescription(s) given to the parent. Patient verbalized understanding. Written instructions provided in Mongolian. The patient was discharged by the physician. He was discharged home and unaccompanied at time of discharge. He left the Emergency Department ambulatory and via private vehicle. Patient driving. --14:58 Sheriff Vieira R.N. Locked/Released at 02/25/2017 14:58 by Sheriff Vieira R.N.
--- NOTE | 2017-02-25 14:35 | ED ORDER SUMMARY ---
..... Patient: WINIFRED BONE OrderSheet [facility] VisitID: [id number] [place] [address] 41y, M Registration Date/Time: 02/25/2017 ORDER SHEET Weight: 132.9 kg (stated) Allergies: No Known Drug Allergy GENERAL ORDERS: CBC w Diff Urgent (11:36 02/25/2017 Indra HADLEY) (Ack 11:39 LNations ER Tech1) CMP Urgent (11:36 02/25/2017 Indra HADLEY) (Ack 11:39 LNations ER Tech1) Amylase Urgent (11:02/25/2017 Indra HADLEY) (Ack 11:39 LNations ER Tech1) Lipase Urgent (11:02/25/2017 Indra HADLEY) (Ack 11:39 LNations ER Tech1) PT with INR Urgent (11:02/25/2017 Indra HADLEY) (Ack 11:40 LNations ER Tech1) PTT Urgent (11:02/25/2017 Indra HADLEY) (Ack 11:40 LNations ER Tech1) NPO (11:36 02/25/2017 Indra HADLEY) (Ack 11:39 LNations ER Tech1) UA-Culture if indicated Urgent (12:10 02/25/2017 Indra HADLEY) (Ack 12:12 LNations ER Tech1) MEDICATION ORDERS: IV FLUIDS: IV NS : initial bolus 1000 mL (1000 mL/hr), then 200 mL/hr for 4h (NOW); Urgent (11:36 02/25/2017 Indra HADLEY) (12:07 Krzysztof R.N.) ORDER SHEET NOTES: [Electronically signed by Sheriff Rajinder Vieira (14:58 02/25/2017)] [Electronically signed by Eugenio Combs MD (21:48 02/26/2017)] [Electronically locked/signed by Sheriff Rajinder Vieira (14:58 02/25/2017)]
--- NOTE | 2017-02-25 14:35 | ED NURSING NOTES ---
Clinical Report - Nurses [facility] [address] [place] [address] 02/25/2017 10:54 [id number] Triage time 11:07. Chief Complaint: (Abnormal lab results. Sent by PCP for follow up.). --11:10 Sheriff Vieira R.N. 11:05 02/25/17. BP: 139/92. HR: 88. RR: 18. O2 saturation: 99%. Temp: 98.1 F. Pain level now: 04/16. --11:10 Sheriff Vieira R.N. Weight: 132.9 kg stated. Height/Length: 71 inches Per Patient. BMI: 40.9. --11:06 Sheriff Vieira R.N. Medications Escitalopram Oxalate Oral (Tablet 20 mg). Levothyroxine Sodium Oral (Tablet 150 mcg). --11:08 Sheriff Vieira R.N. Allergies No Known Drug Allergy. --11:08 Sheriff Vieira R.N. History Arrived by private vehicle. Historian: patient. Unaccompanied. Onset. (2 hours ago). SURGERY HX: Appendectomy. SOCIAL HX: Never smoker. Alcohol use; consumes beer occasionally. No drug use. FALL RISK ASSESSMENT: Fall risk assessment completed. No fall risk identified. NUTRITIONAL RISK ASSESSMENT: The nutritional risk assessment revealed no deficiencies. FUNCTIONAL ASSESSMENT: Functional assessment: no impairments noted. LEARNING NEEDS ASSESSMENT: The learning needs assessment revealed no barriers. SKIN INTEGRITY ASSESSMENT: Skin integrity risk assessment completed. No skin integrity risk identified. --11:10 Sheriff Vieira R.N. PROBLEMS: Abdominal Pain. Anxiety Reaction. Hypothyroidism. --11:08 Sheriff Vieira R.N. PHYSICAL ASSESSMENT Ambulatory to room. GENERAL / NEURO / PSYCH: Alert. Oriented X 4. Appears in no acute distress. HEENT: Pupils equal, round and reactive to light. No facial asymmetry noted. RESPIRATORY: Respirations not labored. CVS: Capillary refill less than 2 seconds. GI / : Abdomen soft. SKIN: Skin intact. Skin is warm and dry. Normal skin turgor. --11:10 Sheriff Vieira R.N. NURSING PROGRESS NOTES Two patient identifiers checked. Call light placed in reach. Side rails up x 2. Bed placed in lowest position. Brakes of bed on. --11:10 Sheriff Vieira R.N. 12:01 02/25/2017 Site #1 started via IV in the right wrist with an 22g angiocath, with aseptic technique and good blood return; one attempt. Blood drawn: rainbow set. Labeled in the presence of the patient and sent to the lab. Saline lock flushed with 10 mL saline. --12:06 Sheriff Vieira R.N. 12:07 02/25/2017 Started bag #1 1000 mL IV Fluids IV NS (Saline); at 1000 mL/hr over 1 hour(s) via site #1 via IV pump. Allergies verified and confirmed 5 rights. IV patency established. IV site checked: no pain, redness, or swelling. IV flushed thoroughly pre- and post-medication administration. --12:07 Sheriff Vieira R.N. 14:11 02/25/2017 Started IV Fluids IV NS (Saline); at 200 mL/hr over 5 hour(s) via site #1 via IV pump. Allergies verified and confirmed 5 rights. IV patency established. IV site checked: no pain, redness, or swelling. IV flushed thoroughly pre- and post-medication administration. --14:11 Sheriff Vieira R.N. DISPOSITION / DISCHARGE Condition at departure: stable. No learning barriers present. Discharge instructions provided and reviewed with the patient. Reviewed medication(s) side effects, precautions, dosing and course information. Prescription(s) given to the parent. Patient verbalized understanding. Written instructions provided in Chinese. The patient was discharged by the physician. He was discharged home and unaccompanied at time of discharge. He left the Emergency Department ambulatory and via private vehicle. Patient driving. --14:58 Sheriff Vieira R.N. Locked/Released at 02/25/2017 14:58 by Sheriff Vieira R.N.
--- NOTE | 2017-02-25 14:35 | ED CLINICAL REPORT ---
Clinical Report - Physicians/Mid Levels Formerly [facility] [address] [place] [address] 02/25/2017 10:54 Patient: WINIFRED BONE Time Seen: 11:14. Arrived- By private vehicle. Historian- patient. HISTORY OF PRESENT ILLNESS Chief Complaint: ABDOMINAL PAIN. This started about 3 weeks ago and is still present. It was gradual in onset and has been constant. It is described as "pain" and burning and it is described as located in the right upper quadrant and in the upper abdomen. At its maximum, severity described as 8 / 10. When seen in the E.D., severity described as 8 / 10. Modifying factors- (worsened yesterday by drinking milk). No nausea, loss of appetite, vomiting or diarrhea. Recent medical care: The patient was seen recently at another facility in a clinic. Seen for similar symptoms. ( the patient was seen for similar symptoms at the clinic. They did lab work. They called him and instructed him to come to the emergency room because of elevated pancreatic enzymes.). REVIEW OF SYSTEMS No chills, fever, calf pain, chest pain or cough. No difficulty breathing, pedal edema, palpitations, black stools or bloody stools. No constipation, diarrhea or urinary problems. He has experienced night sweats. (chronically). All systems otherwise negative, except as recorded above. PAST HISTORY Problems: Abdominal Pain. Anxiety Reaction. Hypothyroidism. Additional Surgeries: Appendectomy. Medications: Escitalopram Oxalate Oral (Tablet 20 mg). Levothyroxine Sodium Oral (Tablet 150 mcg). Allergies: No Known Drug Allergy. SOCIAL HISTORY Smoker- current status unknown (chews tobacco). Alcohol use. (binges with beer. He drank a 6 pack last night. However, he doesn't drink most days). ADDITIONAL NOTES The nursing notes have been reviewed. PHYSICAL EXAM Vital Signs: 02/25/2017 11:05 BP: 139/92. HR: 88. RR: 18. O2 saturation: 99%. Temp: 98.1 F. Pain level now: 8/10. Have been reviewed. Appearance: Alert. Eyes: Pupils equal, round and reactive to light. ENT: Pharynx normal. Neck: Normal inspection. Neck supple. CVS: Normal heart rate and rhythm. Heart sounds normal. Respiratory: No respiratory distress. Breath sounds normal. Abdomen: Soft and nontender. Bowel sounds normal. No organomegaly. No mass. Obese. Back: Normal inspection. No CVA tenderness. Skin: Skin warm and dry. Normal skin color. Normal skin turgor. Extremities: Extremities exhibit normal ROM. No calf tenderness. No lower extremity edema. Neuro: No motor deficit. No sensory deficit. LABS, X-RAYS, AND EKG Laboratory Tests: CBC w Diff: (MAGGIE: 02/25/2017 12:00) ( MsgRcvd 02/25/2017 12:19) Final results Test Result Flag Units (Reference) WHITE BLOOD COUNT 5.2 K/uL (4.5-11.5) RED BLOOD COUNT 4.78 M/uL (4.50-5.90) HEMOGLOBIN 14.6 gm/dL (13.5-17.5) HEMATOCRIT 42.9 % (41.0-53.0) MEAN CELL VOLUME 90 fL (80-100) MEAN CORPUSCULAR HGB 31 pg (26-34) MEAN CORPUSCULAR HGB CONC 34 g/dL (31-37) RED CELL DISTRIBUTION WIDTH 12.5 % (11.6-14.8) PLATELET COUNT 209 K/uL (150-400) NEUTROPHIL % 51.0 % (50-75) LYMPH % 38.9 % (25-40) MONO % 8.0 % (3-14) EOSINOPHIL % 1.6 % (0-4) BASOPHIL % 0.5 % (0-2) PT with INR: (MAGGIE: 02/25/2017 12:00) ( MsgRcvd 02/25/2017 12:19) Final results Test Result Flag Units (Reference) INR 0.9 (0.8-1.2) Low Intensity Therapy: INR 1.5-2.0 PT range 18.5-23.1Mod.Intensity Therapy: INR 2.0-3.0 PT range 23.1-31.5High Intensity Therapy: INR 2.5-3.5 PT range 27.4-35.5High Intensity Therapy 2: INR 3.0-4.0 PT range 31.5-39.3 APTT 25 SECONDS (24-34) CMP: (MAGGIE: 02/25/2017 12:00) ( MsgRcvd 02/25/2017 12:24) Final results Test Result Flag Units (Reference) GLUCOSE 94 mg/dL (70-110) BUN 17 mg/dL (7-18) CREATININE 0.9 mg/dL (0.6-1.3) Estimated GFR >60 mL/min Estimated GFR- >60 mL/min Note: Persistent reduction over 3 months in eGFR<60 mL/min/1.73 m2 defines CKD. Patients with eGFR values>=60 mL/min/1.73 m2 may also have CKD if evidence ofpersistent proteinuria. Additional information may be foundat www.kidney.org. SODIUM 137 mmol/L (136-145) POTASSIUM 4.3 mmol/L (3.5-5.1) CHLORIDE 102 mmol/L (98-107) CARBON DIOXIDE 25 mmol/L (21-32) CALCIUM 8.3 L mg/dL (8.5-10.1) TOTAL PROTEIN 7.4 g/dL (6.4-8.2) ALBUMIN 3.6 g/dL (3.3-5.0) BILIRUBIN, TOTAL 0.2 mg/dL (0.0-1.0) ALKALINE PHOSPHATASE 84 U/L (46-116) AST (SGOT) 32 U/L (15-37) ALT (SGPT) 76 U/L (12-78) LIPASE 173 U/L (73-393) AMYLASE 32 U/L (25-115) . PROGRESS AND PROCEDURES Course of Care: Patient is stable. Patient/family counseled. Old medical records reviewed. Disposition: Discharged. Condition: stable. CLINICAL IMPRESSION Abdominal pain of unknown cause. Abnormal tests: (pancreatic enzymes resolved). INSTRUCTIONS Drink plenty of fluids. No alcohol. (Attend the appointment for your endoscopy as scheduled. Follow up with your primary care provider after that study as discussed.). Warnings: Further evaluation is necessary. GENERAL WARNINGS: Return or contact your physician immediately if your condition worsens or changes unexpectedly, if not improving as expected, or if other problems arise. Your Current Medications: CONTINUE TAKING THE FOLLOWING MEDICATIONS: Escitalopram Oxalate Oral : Tablet 20 mg. Levothyroxine Sodium Oral : Tablet 150 mcg. Understanding of the discharge instructions verbalized by patient. Follow-up with: Kadie Sanchez, Family Practice, , [address], [address], , [facility] [id number] Follow up in ten days. Call for an appointment. (Electronically signed by Eugenio Combs MD 02/26/2017 21:48)
--- NOTE | 2017-02-26 21:48 | ED DISCHARGE INSTRUCTIONS ---
Patient: WINIFRED BONE General Instructions [facility] VisitID: [id number] [address] [place] [place] [id number] 41y, M Registration Date/Time: 02/25/2017 Abdominal pain of unknown cause. Abnormal tests: (pancreatic enzymes resolved). INSTRUCTIONS Drink plenty of fluids. No alcohol. (Attend the appointment for your endoscopy as scheduled. Follow up with your primary care provider after that study as discussed.). Warnings: Further evaluation is necessary. GENERAL WARNINGS: Return or contact your physician immediately if your condition worsens or changes unexpectedly, if not improving as expected, or if other problems arise. Your Current Medications: CONTINUE TAKING THE FOLLOWING MEDICATIONS: Escitalopram Oxalate Oral : Tablet 20 mg. Levothyroxine Sodium Oral : Tablet 150 mcg. Understanding of the discharge instructions verbalized by patient. Follow-up with: Kadie Sanchez, [facility], , [address], [address], , [place] [address] Follow up in ten days. Call for an appointment. ADDITIONAL INFORMATION Abdominal Pain,Uncertain Cause [Male] Based on your visit today, the exact cause of your abdominalpain is not clear. Your exam and tests do not indicate a dangerous cause at this time. However, the signs of a serious problem may take more time to appear. Although your evaluation was reassuring today, sometimes early in the course of many conditions, exam and lab tests can appear normal. Therefore, it is important for you to watch for any new symptoms or worsening of your condition. Causes It may not be obvious what caused your symptoms. Pay attention to things that do seem to make your symptoms worse or better and discuss this with your doctor when you follow up. Diagnosis The evaluation of abdominal pain in the emergency department may onlyrequire an exam by the doctor or it may include blood, urine or imaging studies, depending on many factors. Sometimes exams and tests can identify a cause but in many cases, a clear cause is not found. Further testing at follow up visits may help to suggest a clear diagnosis. Home Care Rest as much as possible until your next exam. Try to avoid any medications (unless otherwise directed by your doctor), foods, activities, or other factors that you may have contributed to your symptoms. Try to eat foods that you know that you have tolerated well in the past. Certain diets may be recommended for some conditions that cause abdominal pain. However, since the cause of your symptoms may not be clear, discuss your diet more with your primary care provider or specialist for further recommendations. Eating several small meals per day as opposed to 2 or 3 larger meals may help. Monitor closely for anything that may make your symptoms worse or better. Pay close attention to symptoms below that may indicate worsening of your condition. Follow Up and Precautions See your doctoras instructed or sooneror if your symptoms are not improving.In some cases, you may need more testing. When to Seek Medical Attention Contact your doctor or see medical attention ifany of the following occur: Pain is becoming worse You are unable to take your medications due to excessive vomiting Swelling of the abdomen Fever of 100.4F (38C) or higher, or as directed by your health care provider Blood in vomit or bowel movements (dark red or black color) Jaundice (yellow color of eyes and skin) New onset of weakness, dizziness or fainting New onset of chest, arm, back, neck or jaw pain You have been given the following additional information: Abdominal Pain, Unknown Cause, (Male) (Electronically signed by Eugenio Combs MD 02/26/2017 21:48)
--- NOTE | 2017-02-26 21:48 | ED DISCHARGE INSTRUCTIONS ---
Patient: WINIFRED BONE General Instructions [facility] VisitID: [id number] [address] [place] [place] [id number] 41y, M Registration Date/Time: 02/25/2017 Abdominal pain of unknown cause. Abnormal tests: (pancreatic enzymes resolved). INSTRUCTIONS Drink plenty of fluids. No alcohol. (Attend the appointment for your endoscopy as scheduled. Follow up with your primary care provider after that study as discussed.). Warnings: Further evaluation is necessary. GENERAL WARNINGS: Return or contact your physician immediately if your condition worsens or changes unexpectedly, if not improving as expected, or if other problems arise. Your Current Medications: CONTINUE TAKING THE FOLLOWING MEDICATIONS: Escitalopram Oxalate Oral : Tablet 20 mg. Levothyroxine Sodium Oral : Tablet 150 mcg. Understanding of the discharge instructions verbalized by patient. Follow-up with: Kadie Sanchez, [facility], , [address], [address], , [place] [address] Follow up in ten days. Call for an appointment. ADDITIONAL INFORMATION Abdominal Pain,Uncertain Cause [Male] Based on your visit today, the exact cause of your abdominalpain is not clear. Your exam and tests do not indicate a dangerous cause at this time. However, the signs of a serious problem may take more time to appear. Although your evaluation was reassuring today, sometimes early in the course of many conditions, exam and lab tests can appear normal. Therefore, it is important for you to watch for any new symptoms or worsening of your condition. Causes It may not be obvious what caused your symptoms. Pay attention to things that do seem to make your symptoms worse or better and discuss this with your doctor when you follow up. Diagnosis The evaluation of abdominal pain in the emergency department may onlyrequire an exam by the doctor or it may include blood, urine or imaging studies, depending on many factors. Sometimes exams and tests can identify a cause but in many cases, a clear cause is not found. Further testing at follow up visits may help to suggest a clear diagnosis. Home Care Rest as much as possible until your next exam. Try to avoid any medications (unless otherwise directed by your doctor), foods, activities, or other factors that you may have contributed to your symptoms. Try to eat foods that you know that you have tolerated well in the past. Certain diets may be recommended for some conditions that cause abdominal pain. However, since the cause of your symptoms may not be clear, discuss your diet more with your primary care provider or specialist for further recommendations. Eating several small meals per day as opposed to 2 or 3 larger meals may help. Monitor closely for anything that may make your symptoms worse or better. Pay close attention to symptoms below that may indicate worsening of your condition. Follow Up and Precautions See your doctoras instructed or sooneror if your symptoms are not improving.In some cases, you may need more testing. When to Seek Medical Attention Contact your doctor or see medical attention ifany of the following occur: Pain is becoming worse You are unable to take your medications due to excessive vomiting Swelling of the abdomen Fever of 100.4F (38C) or higher, or as directed by your health care provider Blood in vomit or bowel movements (dark red or black color) Jaundice (yellow color of eyes and skin) New onset of weakness, dizziness or fainting New onset of chest, arm, back, neck or jaw pain You have been given the following additional information: Abdominal Pain, Unknown Cause, (Male) (Electronically signed by Eugenio Combs MD 02/26/2017 21:48)
--- NOTE | 2017-02-26 21:49 | ED MED RECONCILIATION SUMMARY ---
Patient: WINIFRED OBNE Medication Reconciliation Report [facility] VisitID: [id number] [address] [place] [address] 41y, M Registration Date/Time: 02/25/2017 Weight: 132.9 kg Height/Length: 71 in. BMI: 40.9 ALLERGIES: No Known Drug Allergy The patient's Home Medications are listed below: CONTINUE TAKING THE FOLLOWING MEDICATIONS: Escitalopram Oxalate Oral (20 mg) Levothyroxine Sodium Oral (150 mcg) The source(s) of the original Home Medication information: Not obtained. The following Medications were given to the patient in the Emergency Department: IV NS IV Fluids bolus 0, then 1000 mL/hr, administered: 02/25/2017 12:07:00 PM IV NS IV Fluids bolus 0, then 200 mL/hr, administered: 02/25/2017 2:11:00 PM The following Medications were prescribed to the patient: None.
--- NOTE | 2017-02-26 21:49 | ED MED RECONCILIATION SUMMARY ---
Patient: WINIFRED BONE Medication Reconciliation Report [facility] VisitID: [id number] [address] [place] [address] 41y, M Registration Date/Time: 02/25/2017 Weight: 132.9 kg Height/Length: 71 in. BMI: 40.9 ALLERGIES: No Known Drug Allergy The patient's Home Medications are listed below: CONTINUE TAKING THE FOLLOWING MEDICATIONS: Escitalopram Oxalate Oral (20 mg) Levothyroxine Sodium Oral (150 mcg) The source(s) of the original Home Medication information: Not obtained. The following Medications were given to the patient in the Emergency Department: IV NS IV Fluids bolus 0, then 1000 mL/hr, administered: 02/25/2017 12:07:00 PM IV NS IV Fluids bolus 0, then 200 mL/hr, administered: 02/25/2017 2:11:00 PM The following Medications were prescribed to the patient: None.
--- NOTE | 2017-02-26 21:49 | ED MAR SUMMARY ---
..... Medication Administration Record [facility] [address] [place] [address] Patient: WINIFRED BONE Visit ID: [id number] 41y, M Weight: 132.9 kg Height/Length: 71 in BMI: 40.9 ALLERGIES: No Known Drug Allergy Start 12:07 02/25/2017 Sheriff Vieira R.N. Medication Administered: IV NS (SALINE), Dose: IV Fluids over 1 hour(s), Rate: 1000 mL/hr, Dispensed: 1000 mL bag, Site: #1 right wrist. Medication Ordered: IV NS : initial bolus 1000 mL (1000 mL/hr), then 200 mL/hr for 4h (NOW); Urgent. Start 14:11 02/25/2017 Sheriff Vieira R.N. Medication Administered: IV NS (SALINE), Dose: IV Fluids over 5 hour(s), Rate: 200 mL/hr, Site: #1 right wrist. Medication Ordered: IV NS : initial bolus 1000 mL (1000 mL/hr), then 200 mL/hr for 4h (NOW); Urgent.
--- NOTE | 2017-02-26 21:49 | ED MAR SUMMARY ---
..... Medication Administration Record [facility] [address] [place] [address] Patient: WINIFRED BONE Visit ID: [id number] 41y, M Weight: 132.9 kg Height/Length: 71 in BMI: 40.9 ALLERGIES: No Known Drug Allergy Start 12:07 02/25/2017 Sheriff Vieira R.N. Medication Administered: IV NS (SALINE), Dose: IV Fluids over 1 hour(s), Rate: 1000 mL/hr, Dispensed: 1000 mL bag, Site: #1 right wrist. Medication Ordered: IV NS : initial bolus 1000 mL (1000 mL/hr), then 200 mL/hr for 4h (NOW); Urgent. Start 14:11 02/25/2017 Sheriff Vieira R.N. Medication Administered: IV NS (SALINE), Dose: IV Fluids over 5 hour(s), Rate: 200 mL/hr, Site: #1 right wrist. Medication Ordered: IV NS : initial bolus 1000 mL (1000 mL/hr), then 200 mL/hr for 4h (NOW); Urgent.
== END 2017-02-25 14:45 | disposition home or self-care (01) ==
LOC: ED SRH 10:54
DX: R10.11 Right upper quadrant pain (principal); R74.8 Abnormal levels of other serum enzymes; E03.9 Hypothyroidism, unspecified; Z79.899 Other long term (current) drug therapy
CPT/HCPCS: 90100; 92235; 92530; 94001; 94060; 95059

== ENCOUNTER 2017-03-03 07:44 | Outpatient (CLI) | payer OTHER ==
--- NOTE | 2017-03-03 10:41 | DIAGNOSTIC IMAGING REPORT ---
PROCEDURE: NM HEPATOBILIARY IMAGING INDICATION: Right abdominal pain. TECHNIQUE: 8 mCi technetium 99m Choletec injected intravenously. Sequential images were acquired over a 1 hour time interval. Subsequently, the patient ingested a fatty meal (milk) with images acquired over a 1 hour time interval, followed by calculation of gallbladder ejection fraction. COMPARISON: Comparison is made abdominal ultrasound 02/19/2017. FINDINGS: Prompt liver uptake. Common duct and gallbladder visualized at 11 minutes. Bowel activity is seen at 11 minutes. Gallbladder ejection fraction is calculated at 47%. IMPRESSION: 1. Normal nuclear medicine biliary scan with normal gallbladder ejection fraction of 47%.
--- NOTE | 2017-03-03 11:34 | DIAGNOSTIC IMAGING REPORT ---
PROCEDURE: XR UPPER GI WITH AIR INDICATION: Epigastric pain. Recent rectal bleeding. TECHNIQUE: Double contrast study. Fluoroscopy time, 2.9 minutes; 2984.72 mGy. 44 fluoroscopic images (including cinefluoroscopy). COMPARISON: Comparison is made to nuclear medicine biliary scan earlier in the day (03/03/2017) and abdominal ultrasound (02/19/2017). FINDINGS: Esophagus is normal. There is no evidence of reflux. There are two adjacent 6 mm filling defects (polyps) and the lateral aspect of the gastric fundus. The rest of the stomach is normal. Duodenum is normal. No evidence of ulcer. IMPRESSION: 1. There are two 6 mm nodular filling defect in the lateral gastric fundus. Findings are consistent with gastric polyps (hyperplastic most likely, adenomatous less likely). 2. Otherwise negative upper GI. 3. Findings discussed with the patient and called to Dr. Rolle.
== END 2017-03-03 23:00 | disposition home or self-care (01) ==
LOC: NM SRH 07:44 → XR SRH 10:30 → NM SRH 23:00
DX: F41.9 Anxiety disorder, unspecified (principal); E03.9 Hypothyroidism, unspecified; R93.5 Abnormal findings on diagnostic imaging of other abdominal regions, including retroperitoneum